=== PATIENT | female | born 1965 | race Caucasian/White ===

== ENCOUNTER → 2018-02-01 | Outpatient (CLI) | payer OTHER ==
[~2018-02-01] MED LIST: AMOX1TAB64 PO; ASPI-496 PO; BENA40TA2 PO; CHOL100011 PO; CYAN100014 PO; DILT180C59 PO; DILT30TA33 PO; DIPH25CA46 PO; ENOX80SY4 SQ; KETO15CR2 TP; KETO200T41 PO; LOSA1TAB19 PO; OMEP-110 PO; ONDA4TAB10 PO; TRIA15CR3 TP; WARF-36 PO
== END ==
LOC: CFH 11:38
PROVIDERS: ATTEND Family Medicine
DX: Z12.2 Encounter for screening for malignant neoplasm of respiratory organs (principal); F17.210 Nicotine dependence, cigarettes, uncomplicated; I25.10 Atherosclerotic heart disease of native coronary artery without angina pectoris
CPT/HCPCS: G0297

== ENCOUNTER → 2018-03-15 | Outpatient (CLI) | payer OTHER | END | disposition home or self-care (01) | LOC: ROC 08:49 | PROVIDERS: ATTEND Radiology Radiation Oncology | DX: C77.0 Secondary and unspecified malignant neoplasm of lymph nodes of head, face and neck (principal); C80.1 Malignant (primary) neoplasm, unspecified | CPT/HCPCS: 99214; G0463 ==

== ENCOUNTER → 2018-03-18 | Outpatient (CLI) | payer OTHER | END | disposition home or self-care (01) | LOC: PETCFH 09:49 | PROVIDERS: ATTEND Specialist | DX: C09.8 Malignant neoplasm of overlapping sites of tonsil (principal); R59.9 Enlarged lymph nodes, unspecified | CPT/HCPCS: 78815; A9552 ==

== ENCOUNTER → 2018-07-01 | Outpatient (CLI) | payer OTHER ==
[~2018-07-01] MED LIST changes: -BENA40TA2 PO; +BENA40TA3 PO
== END | disposition home or self-care (01) ==
LOC: EDSTATUS 06-15 10:12 → ROC 08:47
PROVIDERS: ATTEND Radiology Radiation Oncology
DX: Z08 Encounter for follow-up examination after completed treatment for malignant neoplasm (principal); C77.0 Secondary and unspecified malignant neoplasm of lymph nodes of head, face and neck
CPT/HCPCS: 99213; G0463

== ENCOUNTER 2018-08-25 23:49 | Emergency (ER) | payer OTHER ==
[~2018-08-25] VITALS: Ht 172.7 cm; Wt 65.0 kg
[2018-08-25 23:51] VITALS: BP 146/99
== END 2018-08-26 02:16 | disposition home or self-care (01) ==
LOC: ED 23:59
DX: S82.64XA Nondisplaced fracture of lateral malleolus of right fibula, initial encounter for closed fracture (principal); I11.0 Hypertensive heart disease with heart failure; I50.9 Heart failure, unspecified; I48.91 Unspecified atrial fibrillation; I48.92 Unspecified atrial flutter; J44.9 Chronic obstructive pulmonary disease, unspecified; X50.1XXA Overexertion from prolonged static or awkward postures, initial encounter; Y93.89 Activity, other specified; Y92.009 Unspecified place in unspecified non-institutional (private) residence as the place of occurrence of the external cause; Y99.8 Other external cause status
CPT/HCPCS: 29515; 99283

== ENCOUNTER → 2018-10-07 | Outpatient (CLI) | payer OTHER | END | disposition home or self-care (01) | LOC: PETCFH 09:33 | PROVIDERS: ATTEND Specialist | DX: C09.8 Malignant neoplasm of overlapping sites of tonsil (principal) | CPT/HCPCS: 78815; A9552 ==

== ENCOUNTER 2019-03-22 10:50 | Outpatient (CLI) | payer OTHER | END 2019-03-22 23:59 | disposition home or self-care (01) | LOC: CVU 10:50 | PROVIDERS: ATTEND Internal Medicine Cardiovascular Disease | DX: I08.2 Rheumatic disorders of both aortic and tricuspid valves (principal); I10 Essential (primary) hypertension; E78.5 Hyperlipidemia, unspecified; F17.200 Nicotine dependence, unspecified, uncomplicated | CPT/HCPCS: 93306 ==